=== PATIENT | male | born 1985 | race Native Hawaiian/Other Pacific Islander ===

== ENCOUNTER 2019-07-28 11:19 | Emergency (ER) | payer SELFPAY ==
--- NOTE | 2019-07-28 11:44 | Emergency Department Report ---
Blank Doc - Documentation Documentation: 34-year-old male that presents with chest pain, nausea, dizziness, and feeling shaky. This initial assessment/diagnostic orders/clinical plan/treatment(s) is/are subject to change based on patient's health status, clinical progression and re- assessment by fellow clinical providers in the ED. Further treatment and workup at subsequent clinical providers discretion. Patient/guardians urged not to elope from the ED as their condition may be serious if not clinically assessed and managed. Initial orders include: 1- Patient sent to [facility] for further evaluation and treatment 2- labs 3- EKG 4- CXR
[2019-07-28 12:21] LABS: Basophils % (Auto) 0.4 % (0.0-1.8); Eosinophils # (Auto) 0.1 K/mm3 (0.0-0.4); Eosinophils % (Auto) 1.6 % (0.0-4.3); Hematocrit 43.3 % (35.5-45.6); Hemoglobin 14.6 gm/dl (11.8-15.2); Lymphocytes # (Auto) 1.5 K/mm3 (1.2-5.4); Mean Corpuscular HGB Conc 34 % (32-34); Mean Corpuscular Volume 93 fl (84-94); Monocytes # (Auto) 0.3 K/mm3 (0.0-0.8); Monocytes % (Auto) 7.3 % (0.0-7.3); Platelet Count 187 K/mm3 (140-440); Red Blood Count 4.66 M/mm3 (3.65-5.03); Red Cell Distribution Width 13.2 % (13.2-15.2)
--- NOTE | 2019-07-28 12:46 | XRay Report ---
CHEST 2 VIEWS INDICATION / CLINICAL INFORMATION: Chest Pain. COMPARISON: None available. FINDINGS: SUPPORT DEVICES: None. HEART / MEDIASTINUM: No significant abnormality. LUNGS / PLEURA: No significant pulmonary or pleural abnormality. No pneumothorax. ADDITIONAL FINDINGS: No significant additional findings. IMPRESSION: 1. No acute findings. Signer Name: Ashvin Scales MD Signed: 07/28/2019 12:42 PM Workstation Name: [id number]
[2019-07-28 13:28] LABS: Alanine Aminotransferase 34 units/L (7-56); Albumin 4.4 g/dL (3.9-5); BUN/Creatinine Ratio 15; Blood Urea Nitrogen 12 mg/dL (9-20); Calcium 9.2 mg/dL (8.4-10.2); Hemolysis Index 6
[2019-07-28 15:20] VITALS: BP 118/79
[2019-07-28 16:04] LABS: Bilirubin,Urine NEG (Negative); Blood,Urine NEG (Negative); Color,Urine Yellow (Yellow); Mucus,Urine FEW /HPF; Protein,Urine <15 mg/dL mg/dL (Negative); Urobilinogen,Urine < 2.0 mg/dL (<2.0)
--- NOTE | 2019-07-28 16:22 | Emergency Department Report ---
ED General Adult HPI - General Chief complaint: Nausea/Vomiting/Diarrhea Stated complaint: CHEST PAIN Time Seen by Provider: 07/28/19 11:42 Source: patient Mode of arrival: Ambulatory Limitations: No Limitations - History of Present Illness Initial comments: 34yo male states that he had Chest pressure that began gradually earlier today around 11 AM; he also states that he experienced dizziness, nausea, vomiting and shaking. He states that he now has ringing in both ears. He states that his father had a heart attack and in his sixties. -: Gradual, This morning Location: chest Radiation: non-radiation Severity scale (0 -10): 8 Quality: aching Improves with: none Worsens with: none Associated Symptoms: nausea/vomiting. denies: shortness of breath - Related Data Previous Rx's Medication Instructions Recorded Last Taken Type Ondansetron [Zofran Odt] 4 mg PO Q8HR #8 tab.rapdis 07/28/19 Unknown Rx Allergies Allergy/AdvReac Type Severity Reaction Status Date / Time No Known Allergies Allergy Unverified 07/28/19 11:20 ED Review of Systems ROS: Stated complaint: CHEST PAIN Other details as noted in HPI Comment: All other systems reviewed and negative Cardiovascular: as per HPI Neurological: as per HPI ED Past Medical Hx - Past Medical History Previous Medical History?: No - Surgical History Additional Surgical History: right knee - Family History Family history: CAD/SD (father of SD at 65) - Social History Smoking Status: Never Smoker Substance Use Type: None - Medications Home Medications: Home Medications Medication Instructions Recorded Confirmed Last Taken Type Ondansetron [Zofran Odt] 4 mg PO Q8HR #8 tab.rapdis 07/28/19 Unknown Rx ED Physical Exam - General Limitations: No Limitations General appearance: alert, in no apparent distress - Head Head exam: Present: atraumatic, normocephalic - Eye Eye exam: Present: normal appearance, PERRL, EOMI - ENT ENT exam: Present: normal exam, normal orophraynx, normal external ear exam - Neck Neck exam: Present: normal inspection, full ROM. Absent: tenderness - Respiratory Respiratory exam: Present: normal lung sounds bilaterally. Absent: respiratory distress, wheezes - Cardiovascular Cardiovascular Exam: Present: regular rate, normal rhythm, normal heart sounds - GI/Abdominal GI/Abdominal exam: Present: soft, normal bowel sounds. Absent: distended, tenderness - Rectal Rectal exam: Present: deferred - Back Exam Back exam: Present: normal inspection, full ROM. Absent: tenderness - Neurological Exam Neurological exam: Present: alert, altered, oriented X3, CN II-XII intact, normal gait - Psychiatric Psychiatric exam: Present: normal affect, normal mood. Absent: depressed - Skin Skin exam: Present: warm, dry, intact ED Course Vital Signs 07/28/19 07/28/19 07/28/19 11:42 15:12 15:45 Temperature 97.6 F 98.1 F Pulse Rate 85 75 Respiratory 18 15 15 Rate Blood Pressure 136/82 118/79 O2 Sat by Pulse 99 100 Oximetry ED Medical Decision Making - Lab Data Result diagrams: 07/28/19 12:05 07/28/19 12:05 - Radiology Data [facility] [address] [place] [address] XRay Report Signed Patient: KEARA ISIDRO MR#: [id number] : 1985 Acct:[id number] Age/Sex: 34 / M ADM Date: 07/28/19 Loc: ED Attending Dr: Ordering Physician: HUSSAIN BARRON NP Date of Service: 07/28/19 Procedure(s): XR chest routine 2V Accession Number(s): [id number] cc: HUSSAIN BARRON NP Fluoro Time In Minutes: CHEST 2 VIEWS INDICATION / CLINICAL INFORMATION: Chest Pain. COMPARISON: None available. FINDINGS: SUPPORT DEVICES: None. HEART / MEDIASTINUM: No significant abnormality. LUNGS / PLEURA: No significant pulmonary or pleural abnormality. No pneumothorax. ADDITIONAL FINDINGS: No significant additional findings. IMPRESSION: 1. No acute findings. Signer Name: Ashvin Scales MD Signed: 07/28/2019 12:42 PM Workstation Name: [id number] Transcribed By: VALERIA Dictated By: Ashvin Scales MD Electronically Authenticated By: Ashvin Scales MD Signed Date/Time: 07/28/19 124 DD/ 124 TD/TT: - Medical Decision Making 34yo male states that he had Chest pressure that began gradually earlier today around 11 AM; he also states that he experienced dizziness, nausea, vomiting and shaking. He states that he now has ringing in both ears. He states that his father had a heart attack and in his sixties. Dr. Jordan the hopsitalist was consulted and he stated that he will discharge the pt. Pt will be started on Zofran for nausea and adhere to the discharge instruction given by Dr. Jordan. Critical care attestation.: If time is entered above; I have spent that time in minutes in the direct care of this critically ill patient, excluding procedure time. ED Disposition Disposition: DC-01 TO HOME OR SELFCARE Is pt being admited?: No Does the pt Need Aspirin: No Condition: Stable Additional Instructions: Pt seen by Hospitalist and discharged by hospitalist. Prescriptions: Ondansetron [Zofran Odt] 4 mg PO Q8HR #8 tab.rapdis Referrals: PRIMARY CARE, [Primary Care Provider] - 3-5 Days Time of Disposition: 16:47
--- NOTE | 2019-07-28 16:42 | Event Note ---
Date: 07/28/19 Patient comes in for nausea vomiting and diarrhea Also chest pain Family history of coronary artery disease at age 60 Patient doing well in the emergency room after treatment No chest pain at the time of my examination Patient symptomatically better Discharge diagnosis Acute gastroenteritis Reflux esophagitis causing chest pain Discharged home on Zofran ODT and Gatorade as tolerated Follow-up with PCP
== END 2019-07-28 16:48 | disposition home or self-care (01) ==
LOC: ED 11:19
DX: R07.89 Other chest pain (principal); R42 Dizziness and giddiness; R11.2 Nausea with vomiting, unspecified
CPT/HCPCS: 36415; 71046; 80053; 81001; 82962; 83690; 84484; 85025; 87086; 93005; 93010; 99284